=== PATIENT | female | born 1985 | race Caucasian/White ===

== ENCOUNTER 2019-09-28 08:36 | Observation (INO) ==
[2019-09-28] MEDS ORDERED: SODIUM CHLORIDE 0.9% 1,000 ML IV STA ×2 (09:30→10:57)
[2019-09-28 09:36] LABS: Apearance,Urine CLEAR (Clear); Bacteria,Urine Occasional /HPF (Few); Bilirubin,Urine Small mg/dL (Negative); Blood, Urine Negative (Negative); Glucose,Urine (UA) 50 mg/dL (Negative); Hyaline Casts,Urine 10 /LPF (0-3); Ketones,Urine 5 mg/dL (Negative); Mucus,Urine Many /LPF (Occasional); Nitrite,Urine Negative (Negative); Protein,Urine 100 MG/DL; RBC,Urine 4 /HPF (0-4); Squamous Epithelial Cell,Urine Moderate /HPF (0-10); Urine Color Amber (Yellow); WBC,Urine 12 /HPF (0-6)
[2019-09-28 09:39] LABS: Basophils # 0.1 10*3/uL (0.0-0.2); Basophils % 0.5 % (0.0-0.8); Eosinophils # 0.1 10*3/uL (0.0-0.87); Eosinophils % 0.4 % (0.00-10.9); Hematocrit 49.8 VOL% (35.7-47.0); Hemoglobin 17.2 GM/DL (12.0-16.0); Immature Granulocytes % 0.6 %; Immature Granulocytes Absolute 0.09 #; Lymphocytes % 14.1 % (21.3-54.2); Mean Corpuscular HGB Conc 34.5 GM/DL (32-36); Mean Corpuscular Volume 106.9 FL (87-102); Mean Platelet Volume 11.9 FL (9.6-12.0); Monocytes % 3.9 % (1.7-12.7); Neutrophils % 80.5 % (38.7-73.9); Platelet Count 289 T/CUMM (130-400); Red Blood Count 4.66 MC/CUMM (3.8-5.5); Red Cell Distribution Width 13.4 % (9.3-17.3); White Blood Count 14.4 T/CUMM (4-12)
[2019-09-28 09:46] LABS: Barbiturates Screen,Urine Negative (Negative); Benzodiazepines Screen,Urine Positive (Negative); Cannabinoid Screen,Urine Positive (Negative); Opiate Screen,Urine Negative (Negative); Phencyclidine Screen,Urine Negative (Negative)
[2019-09-28 10:23] LABS: Albumin 3.2 G/DL (3.4-5.0); Bilirubin,Total 0.8 MG/DL (0.2-1.0); Calcium 9.1 MG/DL (8.5-10.1); Osmolality,Calculated 258.8 MOS/KG (273-304); Thyroid Stimulating Hormone 1.49 uIU/ml (0.358-3.74)
[2019-09-28 10:52] LABS: Folate 0.8 NG/ML (5.4-24.0)
[2019-09-28] MEDS ORDERED: ONDANSETRON 4 MG/2 ML VIAL ONE (12:05)
[2019-09-28] MEDS ORDERED: ONDANSETRON 4 MG/2 ML VIAL IV STA (12:13)
[2019-09-28] MEDS ORDERED: ONDANSETRON 4 MG/2 ML VIAL IV PRN (12:38)
[2019-09-28] MEDS ORDERED: ACETAMINOPHEN 325 MG TABLET PO PRN (12:38)
[2019-09-28] MEDS ORDERED: LACTULOSE 20 GM/30 ML UDCUP PO PRN (12:38)
[2019-09-28] MEDS ORDERED: clonazePAM 0.5 MG TABLET PO PRN (12:50)
[2019-09-28 13:04] LABS: Risk Ratio 5.71; VLDL CHOLESTEROL 24.8 MG/DL
[2019-09-28] MEDS: SODIUM CHLORIDE 0.9% 1,000 ML IV SCH (14:22)
[2019-09-28] MEDS: PROPRANOLOL 10 MG TABLET PO SCH (20:49)
[2019-09-28] MEDS ORDERED: ENOXAPARIN 40 MG/0.4 ML SYRINGE SUBCUT SCH (21:00)
[2019-09-28] MEDS ORDERED: AMITRIPTYLINE 10 MG TABLET PO SCH (21:00)
[2019-09-29] MEDS: SODIUM CHLORIDE 0.9% 1,000 ML IV SCH ×2 (00:13→08:40)
[2019-09-29 05:31] LABS: Calcium 7.7 MG/DL (8.5-10.1); Osmolality,Calculated 264.2 MOS/KG (273-304)
[2019-09-29 05:39] LABS: Basophils # 0.1 10*3/uL (0.0-0.2); Basophils % 0.8 % (0.0-0.8); Eosinophils # 0.1 10*3/uL (0.0-0.87); Eosinophils % 1.2 % (0.00-10.9); Hematocrit 43.2 VOL% (35.7-47.0); Immature Granulocytes % 0.6 %; Immature Granulocytes Absolute 0.07 #; Lymphocytes # 1.9 10*3/uL (1.4-4.0); Lymphocytes % 16.6 % (21.3-54.2); Mean Corpuscular HGB Conc 33.3 GM/DL (32-36); Mean Corpuscular Volume 109.9 FL (87-102); Mean Platelet Volume 12.2 FL (9.6-12.0); Monocytes % 4.9 % (1.7-12.7); Neutrophils % 75.9 % (38.7-73.9); Red Blood Count 3.93 MC/CUMM (3.8-5.5); Red Cell Distribution Width 13.2 % (9.3-17.3); White Blood Count 11.2 T/CUMM (4-12)
[2019-09-29 05:40] LABS: Hemoglobin 14.4 GM/DL (12.0-16.0); Platelet Count 221 T/CUMM (130-400)
[2019-09-29] MEDS ORDERED: FOLIC ACID 1 MG TABLET PO SCH (09:00)
[2019-09-29] MEDS ORDERED: CITALOPRAM 20 MG TABLET PO SCH (09:00)
[2019-09-29] MEDS: CYCLOBENZAPRINE 10 MG TABLET PO PRN ×2 (09:06→15:36)
[2019-09-29] MEDS: PROPRANOLOL 10 MG TABLET PO SCH (09:07)
[2019-09-29 13:40] VITALS: BP 145/67
[2019-09-29 14:41] LABS: Osmolality, Serum 278 mOsm/kg (275 - 295)
[2019-09-29 15:34] LABS: Osmolality, Urine 790 mOsm/kg (150 - 1150)
[2019-09-29 15:35] LABS: Calcium 7.6 MG/DL (8.5-10.1); Osmolality,Calculated 261.4 MOS/KG (273-304)
== END 2019-09-29 17:42 | disposition home or self-care (01) ==
LOC: N.EDINP 08:36 → N.ED 08:36 → N.EDINP 13:22 → N.2W 13:51
PROVIDERS: ADMIT Internal Medicine; ATTEND Internal Medicine